=== PATIENT | female | born 1975 | race Caucasian/White ===

== ENCOUNTER 2024-01-23 14:44 | Outpatient (AMB) | payer MEDICAID, SELFPAY ==
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
[2024-01-23 14:58] VITALS: BP 116/68; PULSE 87; RESP 16; O2SAT 96; BMI 33.3
== END 2024-01-23 15:39 | disposition home or self-care (01) ==
PROVIDERS: Visit Provider Psychiatry & Neurology Neurology
DX: R20.2 Paresthesia of skin (principal); R53.1 Weakness; G47.10 Hypersomnia, unspecified; R06.83 Snoring; G43.909 Migraine, unspecified, not intractable, without status migrainosus
CPT/HCPCS: 99204; G2211

== ENCOUNTER → 2024-01-23 14:44 | Outpatient (BNVA) | payer MEDICAID, SELFPAY | PROVIDERS: Visit Provider Psychiatry & Neurology Neurology | DX: R20.2 Paresthesia of skin (principal); R53.1 Weakness; G47.10 Hypersomnia, unspecified; G43.909 Migraine, unspecified, not intractable, without status migrainosus; R06.83 Snoring | CPT/HCPCS: 99202 ==

== ENCOUNTER 2024-01-23 15:40 | Outpatient (REF) | payer MEDICAID, SELFPAY ==
[2024-01-23 17:39] LABS: MANUAL DIFF FLAG NO
[2024-01-23 17:45] LABS: Basophils Absolute Auto 0.1 X10*3/uL (0.0-0.2); Basophils Percent Auto 0.7 % (0-2); Eosinophils Absolute Auto 0.2 X10*3/uL (0.0-0.4); Eosinophils Percent Auto 1.5 % (0-4); Hematocrit 41.7 % (37.0-47.0); Hemoglobin 14.5 g/dl (12.0-16.0); Imm Gran Abs Auto 0.05 X10*3/uL (0.00-0.03); Imm Gran Pct Auto 0.4 % (0.0-0.4); Lymphocytes Absolute Auto 2.2 X10*3/uL (1.2-4.9); Lymphocytes Percent Auto 19.5 % (20-40); Mean Corpuscular HGB Conc 34.8 g/dl (31.0-35.0); Mean Corpuscular Hemoglobin 30.5 pg (27.0-33.0); Mean Corpuscular Volume 87.8 fL (80.0-98.0); Mean Platelet Volume 10.4 fL (9.4-12.3); Monocytes Absolute Auto 0.5 X10*3/uL (0.1-1.2); Monocytes Percent Auto 4.8 % (2-11); Neutrophils Absolute Auto 8.2 x10*3/uL (2.0-8.3); Neutrophils Percent Auto 73.1 % (45-73); Platelet Count 286 X10*3/uL (160-400); Red Blood Count 4.75 X10*6/uL (4.20-5.50); Red Cell Distribution Width 12.9 % (11.0-16.0); White Blood Count 11.3 X10*3/uL (4.8-10.8)
[2024-01-23 18:01] LABS: Alanine Aminotransferase 15 U/L (0-31); Albumin Level 4.4 g/dL (3.5-5.0); Alkaline Phosphatase 62 U/L (39-117); Anion Gap 11 (12-20); Aspartate Amino Transferase 19 U/L (5-31); Bilirubin Total 0.3 mg/dL (0.0-1.0); Blood Urea Nitrogen 15 mg/dL (9-16); Calcium 9.7 mg/dL (8.4-10.2); Carbon Dioxide 25 mmol/L (22-29); Chloride 106 mmol/L (96-108); Estimated Glomerular Filt Rate > 60; Glucose Random 107 mg/dL (60-115); Sodium 138 mmol/L (135-145); Total Protein 7.2 g/dL (6.5-8.0)
[2024-01-23 18:15] LABS: TSH reflex Free T4 2.03 uIU/mL (0.32-4.0)
[2024-01-23 18:23] LABS: Erythrocyte Sedimentation Rate 10 MM/HR (0-20)
[2024-01-23 18:34] LABS: Folate 9.6 ng/mL (> or = 4.0); Vitamin B12 505 pg/mL (200-900)
[2024-01-29 13:52] LABS: Vitamin D 25-OH, D2 <4 ng/mL; Vitamin D 25-OH, D3 31 ng/mL; Vitamin D 25-OH, Total 31 ng/mL (30-100)
== END 2024-01-23 15:41 | disposition home or self-care (01) ==
LOC: HO.HKASLDS 15:40
PROVIDERS: Visit Provider Psychiatry & Neurology Neurology
DX: R20.2 Paresthesia of skin (principal)
CPT/HCPCS: 36415; 80053; 82306; 82607; 82746; 84443; 85025; 85652; 99202

== ENCOUNTER 2024-02-14 13:41 | Outpatient (REF) | payer OTHER, SELFPAY ==
--- NOTE | 2024-02-14 13:45 | EMG_ITS ---
Chief complaint: About 2 years of hand tingling, arm weakness Reason for referral: Evaluate for neuropathy Referred by: Dr. Richardson Procedure done: Evaluate for neuropathy Precautions and/or limitations: None The limb temperature was monitored continuously and remained between 32-36 degrees C during the performance of the NCS. Nerve Conduction Studies Anti Sensory Summary Table ?Stim Site NR Onset (ms) Norm Onset (ms) Peak (ms) Norm Peak (ms) O-P Amp (?V) Norm O-P Amp Site1 Site2 Delta-0 (ms) Dist (cm) Calvin (m/s) Norm Calvin (m/s) Left Median Anti Sensory (2nd Digit) Wrist ? 2.5 3.4 <3.6 18.0 >10 Wrist 2nd Digit 2.5 14.0 56 Right Median Anti Sensory (2nd Digit) Wrist ? 2.7 3.4 <3.6 17.3 >10 Wrist 2nd Digit 2.7 14.5 54 Left Ulnar Anti Sensory (5th Digit) Wrist ? 0.9 3.1 <3.7 13.9 >15.0 Wrist 5th Digit 0.9 14.0 156 Right Ulnar Anti Sensory (5th Digit) Wrist ? 0.6 2.9 <3.7 14.2 >15.0 Wrist 5th Digit 0.6 14.0 233 Motor Summary Table ?Stim Site NR Onset (ms) Norm Onset (ms) O-P Amp (mV) Norm O-P Amp iAmp (mV) Amp (1st) (%) Site1 Site2 Delta-0 (ms) Dist (cm) Calvin (m/s) Norm Calvin (m/s) Left Median Motor (Abd Poll Brev) Wrist ? 4.1 <3.9 4.1 >4.5 5.1 100.0 Elbow Wrist 3.8 16.5 43 >45 Elbow ? 7.9 8.6 10.3 209.8 Right Median Motor (Abd Poll Brev) Wrist ? 3.7 <3.9 5.2 >4.5 6.4 100.0 Elbow Wrist 4.0 16.5 41 >45 Elbow ? 7.7 4.4 5.2 84.6 Left Ulnar Motor (Abd Dig Minimi) Wrist ? 2.7 <3.0 6.0 >5 7.9 100.0 B Elbow Wrist 2.7 14.0 52 >45 B Elbow ? 5.4 4.5 5.9 75.0 A Elbow B Elbow 2.2 10.0 45 >45 A Elbow ? 7.6 4.5 5.9 75.0 Right Ulnar Motor (Abd Dig Minimi) Wrist ? 2.7 <3.0 7.4 >5 9.6 100.0 B Elbow Wrist 2.8 15.5 55 >45 B Elbow ? 5.5 6.5 8.7 87.8 A Elbow B Elbow 1.4 10.0 71 >45 A Elbow ? 6.9 6.1 8.1 82.4 Comparison Summary Table ?Stim Site NR Peak (ms) Norm Peak (ms) P-T Amp (?V) Site1 Site2 Delta-P (ms) Norm Delta (ms) Left Median/Radial Dig I Comparison (Digit 1 - 10cm) Median ? 3.1 <2.9 31.8 Median Radial 0.7 Radial ? 2.4 <2.8 20.4 Right Median/Radial Dig I Comparison (Digit 1 - 10cm) Median ? 3.1 <2.9 17.1 Median Radial 0.8 Radial ? 2.3 <2.8 24.9 EMG ?Side Muscle Nerve Root Ins Act Fibs Psw Amp Dur Poly Recrt Int Pat Comment Right 1stDorInt Ulnar C8-T1 Nml Nml Nml Nml Nml 0 Nml Complete Right FlexCarRad Median C6-7 Nml Nml Nml Nml Nml 0 Nml Complete Right Biceps Musculocut C5-6 Nml Nml Nml Nml Nml 0 Nml Complete Right Triceps Radial C6-7-8 Nml Nml Nml Nml Nml 0 Nml Complete Right Deltoid Axillary C5-6 Nml Nml Nml Nml Nml 0 Nml Complete Left 1stDorInt Ulnar C8-T1 Nml Nml Nml Nml Nml 0 Nml Complete Left FlexCarRad Median C6-7 Nml Nml Nml Nml Nml 0 Nml Complete Left Biceps Musculocut C5-6 Nml Nml Nml Nml Nml 0 Nml Complete Left Triceps Radial C6-7-8 Nml Nml Nml Nml Nml 0 Nml Complete Left Deltoid Axillary C5-6 Nml Nml Nml Nml Nml 0 Nml Complete FINDINGS: Left median motor nerve showed prolonged distal latency, small amplitude and slow conduction velocity. Evidence of possible Will Leonard anastomosis was seen, which is a normal anatomic variant. Right median motor nerve showed normal distal latency, normal amplitude and slow conduction velocity. Significant interlatency difference seen between median and radial sensory nerves, bilateral. All other nerves tested were within normal. Concentric needle EMG was performed in selected muscles of the bilateral upper extremities. Study did not reveal signs of electric abnormalities as shown in the table above. IMPRESSION: 1. This is an abnormal study. 2. 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 3. Evidence of possible Will Leonard anastomosis was seen on the left, which is a normal anatomic variant. 4. There is no electrodiagnostic evidence for ulnar neuropathy, brachial plexopathy, or cervical radiculopathy. Thank you for your kind referral. Paris Grijalva MD, LEO Board Certified, [place] [employer] and [employer] (ABPMR) Board Certified, [place] [employer] Electro[employer] (ABEM) CODIN [id number] x 2 MTDD
== END 2024-02-14 13:42 | disposition home or self-care (01) ==
LOC: HO.NEURO 13:41
PROVIDERS: Visit Provider Psychiatry & Neurology Neurology
DX: R20.2 Paresthesia of skin (principal)
CPT/HCPCS: 95886; 95911

== ENCOUNTER → 2024-02-14 13:45 | Outpatient (BNV) | payer OTHER, SELFPAY | PROVIDERS: Visit Provider Physical Medicine & Rehabilitation | DX: G56.03 Carpal tunnel syndrome, bilateral upper limbs (principal); G56.13 Other lesions of median nerve, bilateral upper limbs | CPT/HCPCS: 95886; 95911 ==

== ENCOUNTER 2024-02-20 13:46 | Outpatient (REF) | payer OTHER, SELFPAY ==
--- NOTE | ~2024-02-20 | XR_ITS ---
EXAMINATION: XR CERVICAL SPINE CLINICAL INFORMATION: Neck pain. COMPARISON: None available. TECHNIQUE: 3 views of the cervical spine were obtained. FINDINGS: Multilevel cervical spondylosis. Marked degenerative changes with loss of disc space height and hypertrophic change at C3-C4, and C5-C6. Moderate loss of disc space height at C6-C7. Moderate anterior subluxation of C7 on T1. XR/XR cervical spine 2V IMPRESSION: Multilevel cervical spondylosis.
== END 2024-02-20 13:47 | disposition home or self-care (01) ==
LOC: HO.XRAY 13:46
PROVIDERS: Visit Provider Psychiatry & Neurology Neurology
DX: M54.2 Cervicalgia (principal)
CPT/HCPCS: 72040

== ENCOUNTER 2025-02-08 10:49 | Outpatient (AMB) | payer OTHER, SELFPAY ==
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
[2025-02-08 11:06] VITALS: BP 114/70; PULSE 78; TEMP 36.3; O2SAT 97; BMI 32.7
== END 2025-02-08 11:52 | disposition home or self-care (01) ==
LOC: HO.HMCFM 10:50
PROVIDERS: PCP Physician Assistant Medical; Visit Provider Physician Assistant Medical
DX: Z00.00 Encounter for general adult medical examination without abnormal findings (principal); J44.9 Chronic obstructive pulmonary disease, unspecified; K58.9 Irritable bowel syndrome, unspecified; F41.9 Anxiety disorder, unspecified; F43.10 Post-traumatic stress disorder, unspecified; G43.909 Migraine, unspecified, not intractable, without status migrainosus; J45.909 Unspecified asthma, uncomplicated; R06.83 Snoring; M25.511 Pain in right shoulder; M25.512 Pain in left shoulder; Z23 Encounter for immunization

== ENCOUNTER → 2025-02-08 14:38 | Outpatient (REF) | payer OTHER, SELFPAY | LOC: HO.SL 14:38 | PROVIDERS: Visit Provider Psychiatry & Neurology Neurology | DX: Z00.01 Encounter for general adult medical examination with abnormal findings (principal); Z23 Encounter for immunization; K58.9 Irritable bowel syndrome, unspecified; F41.9 Anxiety disorder, unspecified; F43.10 Post-traumatic stress disorder, unspecified; G43.909 Migraine, unspecified, not intractable, without status migrainosus; J44.9 Chronic obstructive pulmonary disease, unspecified; M25.511 Pain in right shoulder; M25.512 Pain in left shoulder; R06.83 Snoring; G47.10 Hypersomnia, unspecified | CPT/HCPCS: 90471; 90715; 95806; 96127; 99202; 99386 ==

== ENCOUNTER → 2025-02-08 14:49 | Outpatient (BNV) | payer OTHER, SELFPAY | PROVIDERS: Visit Provider Psychiatry & Neurology Neurology | DX: G47.10 Hypersomnia, unspecified (principal); R06.83 Snoring | CPT/HCPCS: 95806 ==

== ENCOUNTER 2025-04-05 14:47 | Outpatient (REF) | payer OTHER, SELFPAY | END 2025-04-05 14:48 | disposition home or self-care (01) | LOC: HO.MAMMO 14:47 | PROVIDERS: PCP Physician Assistant Medical; Visit Provider Physician Assistant Medical | DX: Z12.31 Encounter for screening mammogram for malignant neoplasm of breast (principal) | CPT/HCPCS: 77063; 77067 ==

== ENCOUNTER → 2025-04-05 15:00 | Outpatient (BNV) | payer OTHER, SELFPAY | PROVIDERS: PCP Physician Assistant Medical; Visit Provider Radiology Body Imaging | DX: Z12.31 Encounter for screening mammogram for malignant neoplasm of breast (principal) | CPT/HCPCS: 77063; 77067 ==

== ENCOUNTER 2025-04-07 14:57 | Outpatient (REF) | payer OTHER, SELFPAY ==
[2025-04-07 18:24] LABS: Hematocrit 39.9 % (37.0-47.0); Hemoglobin 13.5 g/dl (12.0-16.0); Mean Corpuscular HGB Conc 33.8 g/dl (31.0-35.0); Mean Corpuscular Hemoglobin 30.6 pg (27.0-33.0); Mean Corpuscular Volume 90.5 fL (80.0-98.0); NRBC Abs Auto 0.000 X10*3/uL (0.0-0.012); NRBC Pct Auto 0.0 /100WBC (0.0-0.2); Platelet Count 259 X10*3/uL (160-400); Red Blood Count 4.41 X10*6/uL (4.20-5.50); White Blood Count 5.7 X10*3/uL (4.8-10.8)
[2025-04-07 18:41] LABS: Alanine Aminotransferase 52 U/L (0-31); Albumin Level 4.5 g/dL (3.5-5.0); Alkaline Phosphatase 66 U/L (39-117); Anion Gap 12 (12-20); Aspartate Amino Transferase 34 U/L (5-31); Blood Urea Nitrogen 13 mg/dL (9-16); Calcium 9.2 mg/dL (8.4-10.2); Carbon Dioxide 21 mmol/L (22-29); Chloride 110 mmol/L (96-108); Estimated Glomerular Filt Rate > 60; Iron 111 mcg/dL (30-160); Percent Iron Saturation 40 % (15-50); Potassium 3.5 mmol/L (3.3-5.1); Sodium 139 mmol/L (135-145); Total Iron Binding Capacity 279 mcg/dL (228-428); Total Protein 6.7 g/dL (6.5-8.0); Unsaturated Iron Binding 168 ug/dL
[2025-04-07 19:01] LABS: Ferritin 176 ng/mL (10-250)
[2025-04-07 19:02] LABS: Folate 6.4 ng/mL (> or = 4.0); Vitamin B12 431 pg/mL (200-900)
[2025-04-08 03:14] LABS: Follicle Stimulating Hormone 109.4 mIU/mL
[2025-04-11 17:08] LABS: Vitamin D 25-OH, D2 <4 ng/mL; Vitamin D 25-OH, D3 38 ng/mL; Vitamin D 25-OH, Total 38 ng/mL (30-100)
== END 2025-04-07 14:58 | disposition home or self-care (01) ==
LOC: HO.WFDLDS 14:57
PROVIDERS: PCP Physician Assistant Medical; Referring Provider Physician Assistant Medical; Visit Provider Nurse Practitioner Family
DX: J45.909 Unspecified asthma, uncomplicated (principal); F41.9 Anxiety disorder, unspecified; I10 Essential (primary) hypertension; N95.9 Unspecified menopausal and perimenopausal disorder; Z13.6 Encounter for screening for cardiovascular disorders; E55.9 Vitamin D deficiency, unspecified; E61.1 Iron deficiency; F17.210 Nicotine dependence, cigarettes, uncomplicated; Z91.09 Other allergy status, other than to drugs and biological substances; Z82.5 Family history of asthma and other chronic lower respiratory diseases; Z71.6 Tobacco abuse counseling
CPT/HCPCS: 36415; 80053; 82306; 82607; 82672; 82728; 82746; 83001; 83002; 83540; 84443; 85027; 99202

== ENCOUNTER 2025-04-07 14:57 | Outpatient (AMB) | payer OTHER, SELFPAY ==
--- NOTE | 2025-04-07 15:43 | MHC.OFFVIS ---
Vital Signs 04/07/25 15:44 Height 5 ft 3 in Weight 188 lb BMI 33.3 BP 112/70 Blood Pressure Location Lt brachial Position Sitting Pulse 71 Pulse Source Pulse Oximeter Pulse Oximetry (%) 99 Oxygen Delivery Method Room Air Intake Visit Reasons: Asthma/COPD Allergies Seasonal Allergies Allergy (Verified 04/07/25 15:47) Itchy Eyes HPI HPI Asthma/COPD: Details: Анна is a pleasant 49-year-old female, current 35+ pack year smoker, with underlying asthma, HTN, anxiety, PTSD and Depression. She was referred by PCP for asthma management. Asthma was diagnosed in adulthood, and the patient has never required intubation for severe exacerbations. She is currently prescribed Advair but admits to inconsistent use, which affects symptom control. The patient reports experiencing wheezing and coughing, which are exacerbated by smoking and physical exertion, such as climbing stairs. She acknowledges that smoking worsens her symptoms. The patient has a history of sinusitis and seasonal allergies, characterized by postnasal drip, sinus infections, and sore throat. She uses Flonase for symptom relief, which she finds helpful. The patient has been smoking since the age of 11 and currently smokes approximately one pack per day. She has expressed concerns about weight gain as a barrier to quitting smoking and has not yet tried nicotine replacement therapies. Family history includes bronchitis in her father and COPD in her mother, which may contribute to her respiratory concerns. [facility] Medical History (Updated 04/07/25 @ 16:13 by Gina Haskins NP) Routine physical examination Bilateral shoulder pain Eating disorder Screening for cardiovascular condition Menopausal and postmenopausal disorder Alcoholism Neck pain Migraine Acute migraine Snoring Hypersomnia Weakness Paresthesias IBS (irritable bowel syndrome) Bulimia PTSD (post-traumatic stress disorder) Depression Anxiety Iron deficiency Asthma Vitamin D deficiency COPD (chronic obstructive pulmonary disease) Benzodiazepine dependence Nicotine dependence Asthma HTN (hypertension) Family History (Updated 02/08/25 @ 11:11 by Patricia Hayward MA) Mother FHx: mental illness Substance abuse Alcoholism Asthma Cardiovascular disease Father Substance abuse Alcoholism Asthma Hypertension Hyperlipemia Diabetes Social History Household Members: Children Housing: Apartment Alcohol intake: never Patient Tobacco Use Status: Current everyday Tobacco user Cigarette Packs Per Day: 1 Years Smoked: 35 years e-Cigarette/Vaping Use: Never Used Second Hand Smoke Exposure: No service: No Current occupational status: employed and disabled Current occupation: [employer] Current occupational exposures/hazards: No Cognitive needs: No Hearing needs: No Vision needs: No Review of Systems Const Denies chills, Denies excessive sweating, Denies fever(s), Denies headache(s) and Denies night sweats Eyes Denies dry eyes, Denies irritation and Denies itchy eyes ENT Reports Normal hearing present, Denies headache(s), Denies nasal congestion, Denies nasal discharge and Denies sore throat Card Denies chest pain, Denies chest pain at rest, Denies chest pain with activity, Denies claudication, Denies leg edema, Denies dyspnea, Denies orthopnea and Denies paroxysmal nocturnal dyspnea Resp Denies chest congestion, Denies excessive phlegm production, Denies pain on inspiration, Denies pain with cough, Denies dyspnea and Denies stridor Musc Denies myalgias Neuro Reports Normal hearing present and Denies headache(s) Endo Denies excessive sweating Jeremie/Lymph Denies lymphadenopathy Aller/Immun Denies itchy eyes and Denies seasonal rhinorrhea Physical Exam Vital Signs: Last Vital Signs Pulse 71 04/07/25 15:44 BP 112/70 04/07/25 15:44 Pulse Ox 99 04/07/25 15:44 Oxygen Delivery Method Room Air 04/07/25 15:44 BMI result Body Mass Index 33.3 Const General: cooperative, healthy appearing, comfortable, no acute distress, well developed and alert Orientation/consciousness: patient oriented x3 Limitations: no limitations HEENT Head: Yes normal to inspection, Yes normocephalic and Yes atraumatic Ears: hearing grossly normal bilaterally and external ears normal Eyes General: appearance normal, both eyes and all related structures Eyelids: Yes eyelids normal Sclerae: sclerae normal EOM: EOMs intact bilaterally Neck Neck: Yes normal visual inspection and Yes no lymphadenopathy Lymphatic: no lymphadenopathy noted Chest Chest palpation & inspection: normal inspection of the chest Resp Effort & Inspection: normal respiratory effort, able to speak in complete sentences, no audible wheezes, no cough, no stridor, not tachypneic, no tripod positioning and no use of accessory muscles Cardio Jugular venous distension: no JVD Rate: regular rate Rhythm: regular rhythm Skin Other: warm, dry General skin exam: no rashes or lesions noted Neuro General: patient oriented x3 Cranial nerves: Yes Normal hearing present Cognition (Neuro): normal cognition Gait exam (Neuro): Normal gait present Extrem General: Yes normal to inspection, Yes capillary refill normal, Yes no clubbing, cyanosis or edema and Yes no pedal edema Psych Appearance: grossly normal and well kempt Speech and movement: Normal speech and movement present and Clear speech present Affect: normal affect Attitude: cooperative Thought process: Normal thought process present Thought content: Normal thought content present Insight: Good insight present (Psych) Judgement: Good judgement present (Psych) Assessment & Plan Assessment & Plan (1) Asthma: Code(s): J45.909 - Unspecified asthma, uncomplicated Category: Medical (2) Nicotine dependence: Code(s): F17.200 - Nicotine dependence, unspecified, uncomplicated Category: Medical (3) Environmental allergies: Code(s): Z91.09 - Other allergy status, other than to drugs and biological substances Category: Medical Plan We discussed the importance of managing asthma with consistent medication use and the potential benefits of switching to a once-daily inhaler for better compliance. Will send Breo. Discussed importance of good oral hygiene to prevent thrush. Smoking cessation reviewed and the benefits of cessation, including the use of nicotine patches which she declines at this time. The need for a pulmonary function test and CT scan was explained, emphasizing their role in assessing lung health and screening for cancer. Will also send for allergy testing. All questions were asnwered and patient is in agreement of plan. Will follow up to review results or sooner if needed. Orders: Orders Immunoglobulin E 04/07/25 Z91.09 - Other allergy status, other than to drugs and biological substances CT chest wo IV con 04/07/25 F17.210 - Nicotine dependence, cigarettes, uncomplicated Resp Allergy Profile Region I 04/07/25 Z91.09 - Other allergy status, other than to drugs and biological substances Complete Blood Count Auto Diff 04/07/25 Z91.09 - Other allergy status, other than to drugs and biological substances Medications: New albuterol sulfate 90 mcg/actuation 2 puffs inhalation Q4-6H PRN 1 ea 6RF shortness of breath or wheezing fluticasone furoate-vilanterol 100-25 mcg/dose (Breo Ellipta) 1 inh inhalation DAILY 60 ea 6RF Coding Level of Care Code New Pt Level 4 (94363) Diagnoses Asthma J45.909 Nicotine dependence F17.200 Environmental allergies Z91.09
[2025-04-07 15:44] VITALS: BP 112/70; PULSE 71; O2SAT 99; BMI 33.3
== END 2025-04-07 16:15 | disposition home or self-care (01) ==
LOC: HO.HPSW 14:58
PROVIDERS: PCP Physician Assistant Medical; Referring Provider Physician Assistant Medical; Visit Provider Nurse Practitioner Family
DX: J45.909 Unspecified asthma, uncomplicated (principal); F17.200 Nicotine dependence, unspecified, uncomplicated; Z91.09 Other allergy status, other than to drugs and biological substances
CPT/HCPCS: 99204

== ENCOUNTER 2025-05-27 13:38 | Outpatient (REF) | payer OTHER, SELFPAY ==
[2025-05-27 17:37] LABS: MANUAL DIFF FLAG NO
[2025-05-27 17:46] LABS: Hematocrit 41.2 % (37.0-47.0); Hemoglobin 13.7 g/dl (12.0-16.0); Imm Gran Abs Auto 0.01 X10*3/uL (0.00-0.03); Imm Gran Pct Auto 0.2 % (0.0-0.4); Lymphocytes Absolute Auto 1.9 X10*3/uL (1.2-4.9); Mean Corpuscular HGB Conc 33.3 g/dl (31.0-35.0); Mean Corpuscular Hemoglobin 29.8 pg (27.0-33.0); Mean Corpuscular Volume 89.6 fL (80.0-98.0); NRBC Abs Auto 0.000 X10*3/uL (0.0-0.012); NRBC Pct Auto 0.0 /100WBC (0.0-0.2); Platelet Count 281 X10*3/uL (160-400); Red Blood Count 4.60 X10*6/uL (4.20-5.50); White Blood Count 5.6 X10*3/uL (4.8-10.8)
[2025-05-27 17:56] LABS: Alanine Aminotransferase 22 U/L (0-31); Aspartate Amino Transferase 26 U/L (5-31); Cholesterol 187 mg/dL (<200); HDL Cholesterol 47 mg/dL (>40); Triglycerides 117 mg/dL (<150)
[2025-05-28 03:20] LABS: Hepatitis A Antibody IgM 0.16 Index (0-0.79); ~Hepatitis A Antibody IgM Nonreactive (Nonreactive)
[2025-05-28 03:36] LABS: HBS Num1 0.62 mIU/mL (0-7.99); HBc Num1 0.11 S/CO (0.00-0.79); HBsAGNum1 0.62 S/CO (0.00-0.99); Hepatitis A Antibody IgM 0.19 Index (0-0.79); Hepatitis B Surface Antigen Negative (Negative); ~HepC Num1 0.08 S/CO (0.00-0.79); ~Hepatitis A Antibody IgM Nonreactive (Nonreactive); ~Hepatitis B Surface Antibody NONREACTIVE (Nonreactive); ~Hepatitis C Antibody Nonreactive (Nonreactive)
[2025-06-01 03:14] LABS: Class Alternaria alternata 0; Class Aspergillus fumigatus 0; Class Bermuda Grass 0; Class Birch 0; Class Cat Dander 0; Class Cladosporium herbarum 0; Class Cockroach 0; Class Common Ragweed 0; Class Cottonwood 0; Class Derm. pterony 0; Class Dermatophagoides farinae 0; Class Dog Dander 0; Class Elm 0; Class Maple Box Elder 0; Class Mountain Cedar 0; Class Mouse Urine Protein 0; Class Mugwort 0; Class Oak 0; Class Penicillium crysogenum 0; Class Rough Pigweed 0; Class Sheep Sorrel 0; Class Sycamore 0; Class Timothy Grass 0; Class Walnut Tree 0; Class White Ash 0; Class White Mulberry 0; D002 - IgE D farinae <0.10 kU/L; E001 - IgE Cat Dander <0.10 kU/L; E005 - IgE Dog Dander <0.10 kU/L; G006 - IgE Timothy Grass <0.10 kU/L; I006-IgE Cockroach, German <0.10 kU/L; M002 - IgE Cladosporium herbar <0.10 kU/L; M003 - IgE Aspergillus fumigat <0.10 kU/L; M006 - IgE Alternaria alternat <0.10 kU/L; T001 IgE Maple/Box Elder <0.10 kU/L; T006 - IgE Cedar, Mountain <0.10 kU/L; T007 - IgE Oak, White <0.10 kU/L; T008 IgE Elm, American <0.10 kU/L; T010 - IgE Walnut <0.10 kU/L; T011 - IgE Maple Leaf Sycamore <0.10 kU/L; T014 - IgE Cottonwood <0.10 kU/L; T015 - IgE Ash, White <0.10 kU/L; T070 - IgE White Mulberry <0.10 kU/L; W001 - IgE Ragweed, Short <0.10 kU/L; W006 - IgE Mugwort <0.10 kU/L; W014 IgE Pigweed, Common <0.10 kU/L; W018 IgE Sheep Sorrel <0.10 kU/L
== END 2025-05-27 13:39 | disposition home or self-care (01) ==
LOC: HO.WFDLDS 13:38
PROVIDERS: Nurse Practitioner Family; Visit Provider Physician Assistant Medical
DX: Z11.4 Encounter for screening for human immunodeficiency virus [HIV] (principal); Z11.59 Encounter for screening for other viral diseases; Z01.84 Encounter for antibody response examination; R79.89 Other specified abnormal findings of blood chemistry; I10 Essential (primary) hypertension; F41.9 Anxiety disorder, unspecified; N95.9 Unspecified menopausal and perimenopausal disorder; Z13.6 Encounter for screening for cardiovascular disorders; E55.9 Vitamin D deficiency, unspecified; E61.1 Iron deficiency; Z91.09 Other allergy status, other than to drugs and biological substances
CPT/HCPCS: 36415; 80061; 82785; 84450; 84460; 85025; 86003; 86704; 86706; 86709; 86803; 87340

== ENCOUNTER 2025-06-01 13:35 | Outpatient (REF) | payer OTHER, SELFPAY ==
--- NOTE | ~2025-06-01 | XR_ITS ---
Examination: CR Xr Shoulder Nolan Min 2v Technique: 4 view bilateral shoulders INDICATION: M25.511 - Pain in right shoulder FINDINGS: LEFT SHOULDER: Small marginal osteophytes are present in the inferior glenohumeral joint. There is no fracture. There is no dislocation. There is no AC joint separation. RIGHT SHOULDER: Minute marginal osteophytes are present in the inferior glenohumeral joint. There is no fracture. There is no dislocation. There is no AC joint separation. XR/XR Shoulder Nolan min 2V Impression: Mild degenerative changes in the left shoulder and minimal degenerative change in the right. Electronically signed by: Mitchell Coelho MD 06/01/2025 02:23 PM EDT
== END 2025-06-01 13:36 | disposition home or self-care (01) ==
LOC: HO.XRAY 13:35
PROVIDERS: PCP Physician Assistant Medical; Visit Provider Physician Assistant Medical
DX: M25.511 Pain in right shoulder (principal); M25.512 Pain in left shoulder
CPT/HCPCS: 73030

== ENCOUNTER → 2025-06-01 13:41 | Outpatient (BNV) | payer OTHER, SELFPAY | PROVIDERS: PCP Physician Assistant Medical; Visit Provider Radiology Diagnostic Radiology | DX: M25.511 Pain in right shoulder (principal); M19.012 Primary osteoarthritis, left shoulder | CPT/HCPCS: 73030 ==

== ENCOUNTER 2025-06-03 13:49 | Outpatient (AMB) | payer OTHER, SELFPAY ==
--- NOTE | 2025-06-03 14:03 | A.OFFPC_ITS ---
Vital Signs 06/03/25 14:10 Height 5 ft 3 in Weight 190 lb 8 oz BMI 33.7 BP 104/72 Blood Pressure Location Rt brachial Position Sitting Respiration 15 Pulse 79 Pulse Source Pulse Oximeter Temp 97.6 F Temp Source Temporal Artery Scan Pulse Oximetry (%) 97 Oxygen Delivery Method Room Air Intake Visit Reasons: cough/sob/headaches /lab review Intake Note: Анна presents in the office today for a cough, SOB and headache. Patient states she has been experiencing vertigo and fatigue. Review of Labs. Allergies Seasonal Allergies Allergy (Verified 06/03/25 14:07) Itchy Eyes Medication List - Last Reconciled 06/03/25 by CHASE Frias albuterol sulfate 90 mcg/actuation 2 puffs inhalation Q4-6H PRN albuterol sulfate 90 mcg/actuation 1 inh inhalation Q4-6H PRN amoxicillin-pot clavulanate 875-125 mg 1 tab PO BID cholecalciferol (vitamin D3) 50 mcg PO DAILY clonazepam 0.5 mg PO TID ferrous sulfate 110 mg PO DAILY fluticasone furoate-vilanterol 100-25 mcg/dose (Breo Ellipta) 1 inh inhalation DAILY prednisone 40 mg (2 x 20 mg) PO DAILY quetiapine 50 mg PO BEDTIME topiramate 25 mg PO ONCE topiramate 50 mg PO ONCE venlafaxine ER 150 mg PO DAILY venlafaxine ER 37.5 mg PO DAILY Tobacco use date assessed: 06/03/25 Dental Screening Dental Screen Date: 06/03/25 Did you have a dental visit in the last 12 months?: No Did you have a dental problem in the last 6 months where you did not have access to dental care?: No Was dental information given to patient?: Patient has dentist HPI HPI Comments History of Present Illness Details This is a 49-year-old female with a past medical history of PTSD, anxi ety, migraines, snoring, carpal tunnel syndrome, COPD/asthma, hypertension and tobacco use disorder presenting for follow up/sick visit. Bilateral should pain has improved a lot since initial visit. XRAYs showed mild degerative changes. Defers PT/ortho referral at this time since this is improving. LFTs normalized. Testing for hepatitis A, B, C negative. She is not immune to hepatitis B and will proceed with the vaccine series. She has been sick for a little over a week now. She endorses sinus pain and pressure, head and throat congestion, productive cough. Mucus is yellow/green. Endorses increased cough, mild SOB. Using Albuterol 2-3 times daily with improvement. Dayquil improves symptoms. Denies fevers, chills, CP, weakness. Previously on Advair and switched to Breo, but she is not taking it because although it worked it caused insomnia. ROS: Constitutional: No fevers or chills. + Fatigue. Eyes: No vision changes, blurry vision, double vision, eye pain, eye redness, eye discharge. ENT: No hearing loss, ear pain. see HPI Respiratory: see HPI Cardiovascular: No chest pain, chest pressure or chest discomfort. No palpitations or pedal edema. Gastrointestinal: No anorexia, nausea, vomiting or diarrhea. No abdominal pain Physical exam: Constitutional: Alert, in no distress. Eyes: no discharge or erythema Ear, Nose and Throat: Canals clear. TMs normal. Nasal mucosa erythematous. +bilateral maxillary sinus tenderness. throat cobblestoned Neck: Supple, Full range of motion. No lymphadenopathy. Respiratory: Clear to auscultation. Cardiovascular: S1 S2 regular. No murmurs. Musculoskeletal: No gross deformities. Normal range of motion. Extremities: Warm and well perfused. No clubbing, cyanosis or edema. [facility] Medical History (Updated 06/03/25 @ 21:38 by CHASE Frias) Acute sinusitis Asthma exacerbation Elevated LFTs Dense breasts Routine physical examination Bilateral shoulder pain Eating disorder Screening for cardiovascular condition Menopausal and postmenopausal disorder Alcoholism Neck pain Migraine Acute migraine Snoring Hypersomnia Weakness Paresthesias IBS (irritable bowel syndrome) Bulimia PTSD (post-traumatic stress disorder) Depression Anxiety Iron deficiency Asthma Vitamin D deficiency COPD (chronic obstructive pulmonary disease) Benzodiazepine dependence Nicotine dependence Asthma HTN (hypertension) Family History Mother FHx: mental illness Substance abuse Alcoholism Asthma Cardiovascular disease Father Substance abuse Alcoholism Asthma Hypertension Hyperlipemia Diabetes Social History (Updated 06/03/25 @ 14:10 by Patricia Hayward CMA) Household Members: Children Housing: Apartment Alcohol intake: never Patient Tobacco Use Status: Current everyday Tobacco user Cigarette Packs Per Day: 1 Years Smoked: 35 years e-Cigarette/Vaping Use: Never Used Second Hand Smoke Exposure: No service: No Current occupational status: employed and disabled Current occupation: [employer] Current occupational exposures/hazards: No Cognitive needs: No Hearing needs: No Vision needs: No Questionnaire Thrive Questionnaire Date Thrive assessed: 02/01/25 I am a: Patient What is your living situation today?: I have a steady place to live Within the past 12 months, did the food you bought not last and you didn't have the money to get more?: Never true Within the past 12 months, did you worry whether your food would run out before you got money to buy more?: Never true Do you have trouble paying for medicines?: No Do you have trouble getting transportation to medical appointments?: No Do you have trouble paying your heating and electricity bill?: No Do you have trouble taking care of your child, family member or friend?: No Do you have trouble with day-to-day activities such as bathing, preparing meals, shopping, managing finances, etc.?: No Are you currently unemployed and looking for a job?: No Are you interested in more education?: I choose not to answer this question Please select the resources that you would like help with: None Currently or been in a relationship where the following occur: No concerns reported THRIVE Score: 0 VALDEMAR-7 AMB Questionnaire VALDEMAR-7 Date VALDEMAR - 7 assessed: 02/08/25 Source: Developed by Drs. Will Ayon, Cecily Sharp, Evelio Guerrero and colleagues, with an educational amita from [employer]. Physical exam (Primary Care) Vital Signs: Last Vital Signs Temp 97.6 F 06/03/25 14:10 Pulse 79 06/03/25 14:10 Resp 15 06/03/25 14:10 BP 104/72 06/03/25 14:10 Pulse Ox 97 06/03/25 14:10 Oxygen Delivery Method Room Air 06/03/25 14:10 BMI result Body Mass Index 33.7 Tobacco/Smoking Status: Tobacco use Status Tobacco use date assessed 06/03/25 06/03/25 14:13 Patient Tobacco Use Status Current everyday Tobacco 06/03/25 14:10 e-Cigarette/Vaping Use Never Used 06/03/25 14:10 Thrive Assessment: Date of Thrive Assessment Date Thrive assessed 02/01/25 06/03/25 14:05 Currently or been in a relationship where the following occur: No concerns r eported Coding Level of Care Code Est Pt Level 4 (66719) Complex EM visit Add On G2211 Diagnoses Elevated LFTs R79.89 Bilateral shoulder pain M25.511; M25.512 Mild intermittent asthma with exacerbation J45.21 Asthma severity: mild Asthma persistence: intermittent Acute non-recurrent maxillary sinusitis J01.00 Sinusitis location: maxillary Recurrence: non-recurrent Assessment & Plan Assessment & Plan (1) Elevated LFTs: Code(s): R79.89 - Other specified abnormal findings of blood chemistry Category: Medical Plan: Resolved. She will schedule hep b series. (2) Bilateral shoulder pain: Code(s): M25.511 - Pain in right shoulder; M25.512 - Pain in left shoulder Category: Medical Plan: Improved. Monitor. (3) Asthma exacerbation: Code(s): J45.901 - Unspecified asthma with (acute) exacerbation Category: Medical Qualifiers: Asthma severity: mild Asthma persistence: intermittent Qualified Code(s): J45.21 - Mild intermittent asthma with (acute) exacerbation Plan: Prednisone 40 mg daily x 5 days. Continue Albuterol every 4 hours as needed. Will reach out to pulmonology regarding maintenance regimen. (4) Acute sinusitis: Code(s): J01.90 - Acute sinusitis, unspecified Category: Medical Qualifiers: Sinusitis location: maxillary Recurrence: non-recurrent Qualified Code(s): J01.00 - Acute maxillary sinusitis, unspecified Plan: Augmentin x 10 days. Rest, increase fluids. Continue supportive measures. Plan Call if symptoms worsen or do not resolve. Medications: New prednisone 40 mg (2 x 20 mg) PO DAILY 10 tabs 0RF CHASE Frias amoxicillin-pot clavulanate 875-125 mg 1 tab PO BID 20 tabs 0RF CHASE Frias Changed From topiramate 50 mg PO BID 60 tabs 6RF To topiramate Evening 50 mg PO ONCE Basia Richardson MD
[2025-06-03 14:10] VITALS: BP 104/72; PULSE 79; RESP 15; TEMP 36.4; O2SAT 97; BMI 33.7
== END 2025-06-03 15:15 | disposition home or self-care (01) ==
LOC: HO.HMCFM 13:50
PROVIDERS: PCP Physician Assistant Medical; Visit Provider Physician Assistant Medical
DX: R79.89 Other specified abnormal findings of blood chemistry (principal); M25.511 Pain in right shoulder; M25.512 Pain in left shoulder; J45.21 Mild intermittent asthma with (acute) exacerbation; J01.00 Acute maxillary sinusitis, unspecified

== ENCOUNTER → 2025-06-03 13:49 | Outpatient (BNVA) | payer OTHER, SELFPAY | PROVIDERS: PCP Physician Assistant Medical; Visit Provider Physician Assistant Medical | DX: J45.21 Mild intermittent asthma with (acute) exacerbation (principal); M25.511 Pain in right shoulder; M25.512 Pain in left shoulder; J01.00 Acute maxillary sinusitis, unspecified | CPT/HCPCS: 99212 ==